=== PATIENT | female | born 1985 | race Caucasian/White ===

== ENCOUNTER 2016-04-23 05:55 | Emergency (ER) | payer MEDICAID ==
[~2016-04-23] VITALS: Ht 167.6 cm; Wt 113.4 kg
[2016-04-23 06:51] VITALS: BP 147/84
[2016-04-23] MEDS ORDERED: cefTRIAXone SOD 1,000 MG VL IM ONE (07:30)
[2016-04-23] MEDS ORDERED: IPRATROPIUM BROM 0.5 MG/2.5ML INH SOL NEB ONE (07:30)
[2016-04-23] MEDS ORDERED: ALBUTEROL SULF 2.5 MG/0.5ML(0.5%) NEB SOLN NEB ONE (07:30)
== END 2016-04-23 07:53 | disposition home or self-care (01) ==
LOC: ER 06:05
DX: O26.893 Other specified pregnancy related conditions, third trimester (principal); J02.9 Acute pharyngitis, unspecified; J45.901 Unspecified asthma with (acute) exacerbation; Z3A.34 34 weeks gestation of pregnancy
CPT/HCPCS: 94640; 96372; 99283; J0696